=== PATIENT | male | born 1940 | race Caucasian/White ===

== ENCOUNTER 2016-08-21 11:06 | Observation (INO) | payer MEDICARE, OTHER ==
[~2016-08-21] VITALS: Ht 170.2 cm; Wt 70.3 kg
[~2016-08-21 11:06] MED LIST: CARDIZEM CD240 MG PO; ELAVIL 25 MG TA25 MG PO; FENOFIBRATE160 MG PO; GLUCOPHAGE500 MG PO; HUMALOG100 UNIT/3 SQ; IPRAT-ALBUT 0.5-3 ML INH; LANTUS SOL100 UNIT/1 SQ; LASIX20 MG PO; LISINOPRIL5 MG PO; LOPRESSOR 25 MG25 MG PO; OMEPRAZOLE20 M1 PO; OXYCODONE HCL10 MG PO; PHENERGAN 12.12.5 M1 PO; PROAIR HFA8.5 GM INH; SPIRIVA18 MCG INH; SYMBICORT 16010.2 GM INH; VITAMIN D50000 UNIT PO
[2016-08-21 12:43] LABS: HEMOGLOBIN 13.7 gm/dl (14.0-17.5); RED BLOOD COUNT 4.98 M/UL (4.20-5.50); WHITE BLOOD COUNT 6.9 K/UL (4.5-11.0)
[2016-08-21 12:47] LABS: BUN/CREATININE RATIO 13 (0-10)
== END 2016-08-22 05:00 | disposition left against medical advice (07) ==
LOC: ER1 11:06 → ZEROF 13:30 → M/S 13:30
PROVIDERS: Emergency Medicine; ADMIT Internal Medicine
DX: I50.23 Acute on chronic systolic (congestive) heart failure (principal); I11.0 Hypertensive heart disease with heart failure; J96.11 Chronic respiratory failure with hypoxia; J44.9 Chronic obstructive pulmonary disease, unspecified; I48.92 Unspecified atrial flutter; E11.9 Type 2 diabetes mellitus without complications; E78.5 Hyperlipidemia, unspecified; K21.9 Gastro-esophageal reflux disease without esophagitis; D72.829 Elevated white blood cell count, unspecified; I34.0 Nonrheumatic mitral (valve) insufficiency; I07.1 Rheumatic tricuspid insufficiency; I51.7 Cardiomegaly; I25.10 Atherosclerotic heart disease of native coronary artery without angina pectoris; J90 Pleural effusion, not elsewhere classified; F17.210 Nicotine dependence, cigarettes, uncomplicated; Z79.4 Long term (current) use of insulin; Z85.21 Personal history of malignant neoplasm of larynx; Z09 Encounter for follow-up examination after completed treatment for conditions other than malignant neoplasm; Z99.81 Dependence on supplemental oxygen; Z87.11 Personal history of peptic ulcer disease; Z98.890 Other specified postprocedural states; Z79.52 Long term (current) use of systemic steroids; Z79.51 Long term (current) use of inhaled steroids; Z79.891 Long term (current) use of opiate analgesic; Z79.899 Other long term (current) drug therapy; Z83.3 Family history of diabetes mellitus; Z82.5 Family history of asthma and other chronic lower respiratory diseases; Z80.9 Family history of malignant neoplasm, unspecified; Z86.2 Personal history of diseases of the blood and blood-forming organs and certain disorders involving the immune mechanism
CPT/HCPCS: 36415; 36600; 71010; 80053; 82550; 82553; 82803; 82962; 83880; 84439; 84443; 84484; 85025; 93005; 94640; 94664; 96374; 99285; G0378; J1940

== ENCOUNTER 2016-09-01 00:02 | Emergency (ER) | payer MEDICARE, OTHER ==
[2016-09-01 01:28] LABS: BUN/CREATININE RATIO 14 (0-10)
[2016-09-01 01:41] LABS: HEMOGLOBIN 12.2 gm/dl (14.0-17.5); RED BLOOD COUNT 4.57 M/UL (4.20-5.50)
== END 2016-09-01 04:22 | disposition home or self-care (01) ==
LOC: ER1 00:02
PROVIDERS: Family Medicine
DX: I50.9 Heart failure, unspecified (principal); J44.9 Chronic obstructive pulmonary disease, unspecified; E11.9 Type 2 diabetes mellitus without complications; Z79.4 Long term (current) use of insulin; Z79.84 Long term (current) use of oral hypoglycemic drugs
CPT/HCPCS: 36415; 71010; 80053; 82550; 82553; 83874; 84484; 85025; 93005; 99285; J1940